=== PATIENT | male | born 1970 | race Caucasian/White ===

== ENCOUNTER 2018-04-12 07:23 | Emergency (ER) | payer MEDICAID, SELFPAY ==
[2018-04-12 07:24] VITALS: BP 134/78; PULSE 71; RESP 16; TEMP 36.4; O2SAT 98; BMI 30.8
--- NOTE | 2018-04-12 07:29 | ED.RN ---
PT DROVE SELF HERE
--- NOTE | 2018-04-12 08:12 | ED.DCSUM_ITS ---
- ER Visit Summary Date of Service: 04/12/18 Chief Complaint: Bleeding hemorrhoid, weakness History of Present Illness: The patient is a 47 M who states he feels weak. Is been feeling this way for 4 days. On Wednesday, he noted that he started having a bleeding hemorrhoid. This made him feel weak. He is concerned for a blood infection. He is seeing Dr. Watson with surgery tomorrow about this hemorrhoid. He has taken nothing for the pain or bleeding. He has not had any fevers. Physical Examination: Vital signs reviewed. HEENT exam unremarkable. Heart is regular rate and rhythm without murmurs. Lungs are clear to auscultation. Abdomen is soft and nontender. Rectal exam reveals a large external hemorrhoid with some oozing of blood. No large amount of bleeding. Extremities reveal no edema. Skin exam normal. Neurologic exam normal. Test Results: CBC and urinalysis negative Emergency Department Course and Treatment: The patient's labs are normal. White blood cell count and hemoglobin normal. Patient will be discharged with Proctofoam. He will follow-up with surgery tomorrow as scheduled Treatment Plan: [] Disposition: Discharge Impression: External bleeding hemorrhoid This note was generated with [employer] dictation software. It may contain incorrect words, spelling, and punctuation that were not noted in review of the chart prior to signing ED Disposition - Plan for ED Patient: Chief Complaint: Other, Pain/Inj
[2018-04-12 08:33] LABS: Absolute Lymphocyte Count 1.56 X10^3/ul (0.83-4.51); Absolute Neutrophil Count 4.6 X10^3/uL (2.0-7.7); Basophil# 0.01 X10^3/uL; Basophil% 0.1 % (0-1); Eosinophil# 0.08 X10^3/uL; Eosinophils% 1.2 % (0-5); Hematocrit 47.2 % (40-54); Hemoglobin 15.8 g/dl (13.0-16.5); Lymphocyte # 1.56 X10^3/ul (4.0); Lymphocyte % 23.1 % (19-41); Mean Corp Hgb Conc 33.5 g/gl (32-36); Mean Corpuscular Hgb 30.3 pg (27.0-32.0); Mean Corpuscular Volume 90.4 fL (80-94); Mean Platelet Vol. 10.5 fl (6.2-12.0); Monocyte# 0.51 X10^3/uL; Monocyte% 7.6 % (0-10); Neutrophil # 4.58 X10^3/uL (2.7-7.7); Neutrophil % 67.9 % (47-70); Platelet Count 164 K/mm3 (150-450); RBC Distribution Width CV 12.8 % (11.6-14.6); RBC Distribution Width SD 42.2 fl (35.1-43.9); Red Blood Count 5.22 M/mm3 (4.6-6.2); White Blood Count 6.8 K/mm3 (4.4-11.0)
[2018-04-12 08:38] LABS: Bacteria 0 SEEN /hpf (None Seen); Mucous, Urine 0 SEEN /hpf (<or=2+); Red Blood Cells-Urine 0 SEEN /hpf (0-5); White Blood Cells 0 SEEN /hpf (0-5)
[2018-04-12 08:39] LABS: POSITIVE COUNT NO; POSITIVE DIFFERENTIAL NO; POSITIVE MORPHOLOGY NO
[2018-04-12 08:39] LABS: Color, Urine Yellow (Yellow); Glucose, Dipstick Normal (Normal); Ketone-Dipstick Negative (Negative); Leukocyte Esterase-Dipstick Negative /ul (Negative); Nitrite-Dipstick Negative (Negative); Occult Blood-Urine Negative /ul (Negative); Protein-Dipstick 15 mg/dl (Negative); Urine Bilirubin Dipstick Negative (Negative); Urine Clarity Sl. Cloudy (Clear); Urine Urobilinogen 1 mg/dl (Normal)
[2018-04-12 08:52] LABS: Squamous Epithelial Cells - UA 0-5 SEEN /hpf (0-5)
--- NOTE | 2018-04-12 09:00 | ED.DEP ---
ED Disposition - Plan for ED Patient: Disposition: Home or Assisted Living Chief Complaint: Other, Pain/Inj Diagnosis: Bleeding external hemorrhoids
--- NOTE | 2018-04-12 09:06 | ED.DEP ---
ED Disposition - Plan for ED Patient: Disposition: Home or Assisted Living Chief Complaint: Other, Pain/Inj Diagnosis: Bleeding external hemorrhoids Instructions: ED Hemorrhoids Prescriptions: Hydrocortisone/Pramoxine [Proctofoam-Hc Foam] 10 gm RC BID #1 foam Referrals: Davi Regalado MD [Primary Care Provider] -
[2018-04-12 09:32] VITALS: PULSE 70; RESP 16; O2SAT 99
== END 2018-04-12 09:32 | disposition home or self-care (01) ==
PROVIDERS: Emergency Provider Emergency Medicine; Family Provider Family Medicine; PCP Family Medicine
DX: K64.4 Residual hemorrhoidal skin tags (principal); Z79.899 Other long term (current) drug therapy
CPT/HCPCS: 81001; 85025; 99282

== ENCOUNTER 2018-04-14 09:40 | Day surgery (SDC) | payer MEDICAID, SELFPAY ==
[2018-04-14] VITALS (7 sets, daily range): BP systolic 124–139; BP diastolic 68–88; PULSE 62–87; RESP 16–18; TEMP 36.5–36.8; O2SAT 95–100; BMI 31.6
--- NOTE | 2018-04-14 08:10 | HEM_PTH ---
PATIENT: MARGARITA MARSHALL LOC: [facility] [place] U#:[id number] AGE/SX: 47/M ROOM: RE04/14/[address]: Dr. Julianne Watson MD : [id number] BED: DIS: 04/14/2018 SPEC #: [id number] RECD: 04/15/18 09:09 STATUS: JODY ABILIO #: [id number] STEPHANIE: 04/14/18 08:[address]: Julianne Watson DEPT: SURGICAL PATHOLOGY RECD BY: Trip Munroe ENTERED: 04/15/18 11:12 SP TYPE: HEMORRHOID OTHR DR: Dr. Davi Regalado MD Tissues: HEMORRHOIDS Procedures: Surgery Specimen Level III HEADER OPERATION: Hemorrhoidectomy PRE-OP DIAGNOSIS: Large prolapsed thrombosed hemorrhoidal tissue TISSUE SUBMITTED: Hemorrhoid tissue MICROSCOPIC DIAGNOSIS Hemorrhoid, hemorrhoidectomy: Submucosal vascular ectasia and thrombosis consistent with hemorrhoid. Mucosal ulceration and associated acute and chronic inflammation with associated reactive epithelial changes. AM:jocelyn 04/18/18 MICROSCOPIC DESCRIPTION Slides are reviewed. GROSS DESCRIPTION Received in fixative is one container labeled with the patient's name and designated hemorrhoid tissue. The specimen consists of pink soft tissue measuring 0.7 x 0.8 x 0.5 cm. The specimen is bisected and submitted entirely in one cassette. / KORTNEY:jocelyn 04/15/18 TC:2 CPT: 48358
[2018-04-14] MEDS: Fleet Enema 1 ML RECTAL (10:20)
[2018-04-14] MEDS: Dibucaine 30 GM Tube 1 APPLIC (11:49)
[2018-04-14] MEDS: Bupiv/Epi 0.5% Mpf 30 ML Vial (13:01)
[2018-04-14] MEDS: HYDROcodone Bitartrate/Apap 5/325 Tablet PO (14:37)
--- NOTE | 2018-04-14 14:50 | PCM.DC.GS ---
Discharge Diet: No Restrictions - drink plenty of fluids avoid caffeinated products - they tend to cause dehydration Discharge Activity: Return to Normal Activity, May not drive while taking narcotic pain medications. Additional Dressing/Incision Instructions:: There is a padding in your rectum, it can fall out, it provides postoperative pain medications to the area and helps stop bleeding. You will have bleeding at the site, this is normal, avoid straining with bowel movements Allergies/Adverse Reactions: Allergies No Known Allergies Allergy (Verified 04/14/18 10:06) Medications to take at Discharge Divalproex Sodium [Depakote] 500 mg PO DAILY 09/22/13 Hydrocodone Bitart/Apap 5-325 [[place] 5MG-325MG] 1 tab PO Q6H PRN PRN 5 Days #20 tab 04/14/18 The following prescriptions were given: Hydrocodone Bitart/Apap 5-325 [[place] 5MG-325MG] 1 tab PO Q6H PRN PRN 5 Days #20 tab PRN Reason: Pain Primary Care Physician: Davi Regalado MD [Primary Care Provider] - Test Results: Test results from this visit will be discussed in further detail at your follow-up appointment, if applicable. Please Follow Up With: Julianne Watson MD - call When: to be seen next week, thank you
--- NOTE | 2018-04-14 14:53 | DCINST_ITS ---
Discharge Diet: No Restrictions - drink plenty of fluids avoid caffeinated products - they tend to cause dehydration Discharge Activity: Return to Normal Activity, May not drive while taking narcotic pain medications. Additional Dressing/Incision Instructions:: There is a padding in your rectum, it can fall out, it provides postoperative pain medications to the area and helps stop bleeding. You will have bleeding at the site, this is normal, avoid straining with bowel movements Allergies/Adverse Reactions: Allergies No Known Allergies Allergy (Verified 04/14/18 10:06) Medications to take at Discharge Divalproex Sodium [Depakote] 500 mg PO DAILY 09/22/13 Hydrocodone Bitart/Apap 5-325 [[place] 5MG-325MG] 1 tab PO Q6H PRN PRN 5 Days #20 tab 04/14/18 The following prescriptions were given: Hydrocodone Bitart/Apap 5-325 [[place] 5MG-325MG] 1 tab PO Q6H PRN PRN 5 Days #20 tab PRN Reason: Pain Primary Care Physician: Davi Regalado MD [Primary Care Provider] - Test Results: Test results from this visit will be discussed in further detail at your follow- up appointment, if applicable. Please Follow Up With: Julianne Watson MD - call When: to be seen next week, thank you
--- NOTE | 2018-04-14 14:53 | PCM.IMDPSTOP ---
Immediate Post-Op Note Date of Procedure: 04/14/18 Primary Surgeon/Physician: Julianne Watson director financial systems: NOT,DEFINED Pre-Operative Diagnosis: prolapsed thrombosed hemorrhoidal tissue Post-Operative Diagnosis: same Surgery/Procedure Performed:: hemorrhoidectomy Description of Surgical Findings:: left lateral bundle prolapsed thrombosed hemorrhoidal tissue Estimated Blood Loss: < 5 ml Specimen's removed: hemorrhoidal tissue Type of Anesthesia:: General ASA Class: ASA2 Mod Systematic Disease - Admit VTE Documentation VTE Present on Admission: Yes VTE Mechan Device Prophylaxis: SCD's
--- NOTE | 2018-04-16 12:31 | PCM.OPRPT ---
Report of Operation Date of Procedure: 04/14/18 Pre-Operative Diagnosis: prolapsed thrombosed hemorrhoidal tissue- left lateral aspect Post-Operative Diagnosis: same Surgery/Procedure Performed:: hemorrhoidectomy and drainage of thrombosed hemorrhoidal tissue Description of Surgical Findings:: left lateral bundle prolapsed thrombosed hemorrhoidal tissue [employer]mw sales consultant: NOT,DEFINED Type of Anesthesia:: General Anesthesiologist: Herb Maxwell Specimen's removed: hemorrhoidal tissue Estimated Blood Loss (mL): < 5 ml Fluids Replaced: see anesthesia note Description of Procedure: After informed consent was obtained, patient was brought to the Operating Room. Appropriate time out protocol was followed. Patient was then placed under anesthesia. He was placed in the modified lithotomy position. The anal canal and perineum was then prepped with a betadyne surgical preparation and appropriate surgical drapes were placed. The patient had large prolapsed hemorrhoidal tissue of the left lateral aspect with thrombosis in the hemorrhoidal tissue. The hemorrhoidal tissues and surrounding tissues were infiltrated with local anesthetic. Using a 15 blade scalpel, an incision was made radially at the center portion of this hemorrhoidal bundle. There was a large amount of thrombosed clot which was removed. The hemorrhoidal tissue within the bundle was then sharply excised with Metzenbaum scissors. A sample was forwarded to pathology for analysis. After removal of the hemorrhoidal tissue and of the majority of the clot within this hemorrhoidal tissue, the hemorrhoidal tissue was able to be reduced back into the anal canal. The incisional edges were re-approximated with 3-0 chromic suture in an interrupted simple fashion. Hemostasis was achieved by electrocautery. Thrombin gelfoam with dubicaine ointment was then rolled together and placed in the anal canal. The patient tolerated procedure well and was brought to the Recovery Room in stable condition. - Complications none noted - Admit VTE Documentation VTE Present on Admission: Yes VTE Mechan Device Prophylaxis: SCD's
== END 2018-04-14 16:01 | disposition home or self-care (01) ==
LOC: SDC 09:42 → AC 09:43
PROVIDERS: Family Provider Family Medicine; PCP Family Medicine; Visit Provider Surgery
PROC: (CPT 46083; principal; 2018-04-14 07:55)
DX: K64.3 Fourth degree hemorrhoids (principal); F41.9 Anxiety disorder, unspecified; F32.9 Major depressive disorder, single episode, unspecified; F17.200 Nicotine dependence, unspecified, uncomplicated; Z79.899 Other long term (current) drug therapy
CPT/HCPCS: 46083; 46320; 88304; J7120; J2405

== ENCOUNTER → 2018-05-06 08:39 | Outpatient (CLI) | payer MEDICAID, SELFPAY | PROVIDERS: Family Provider Family Medicine; PCP Family Medicine; Visit Provider Specialist | DX: M19.012 Primary osteoarthritis, left shoulder (principal) | CPT/HCPCS: 20610; 77002; Q9967; J0702 ==

== ENCOUNTER 2019-11-07 08:20 | Emergency (ER) | payer SELFPAY ==
[2019-11-07 08:28] VITALS: BP 137/67; PULSE 87; RESP 16; TEMP 37.2; O2SAT 97; BMI 32.1
--- NOTE | 2019-11-07 09:14 | EKG12_ITS ---
Test Reason : LOWER EXTREMITY Blood Pressure : / mmHG Vent. Rate : 085 BPM Atrial Rate : 085 BPM P-R Int : 154 ms QRS Dur : 104 ms QT Int : 380 ms P-R-T Axes : 059 -16 019 degrees QTc Int : 452 ms Normal sinus rhythm Normal ECG Confirmed by GABBY WATERS ([id number]), book editor ELIESER JEROME ([id number]) on 11/08/2019 3:02:39 PM Referred By: KORTNEY/LILIANE Confirmed By:GABBY WATERS
--- NOTE | 2019-11-07 09:15 | CT_ITS ---
STUDY: CT ABDOMEN AND PELVIS WITHOUT CONTRAST REASON FOR EXAM: Male, 48 years old. Mid abdomen pain, fever, 4 days post knee surgery. Prior bilateral inguinal hernia repair RADIATION DOSAGE (If Supplied By Facility): CTDIvol = ( 16.62 ) mGy, DLP = ( 976.00 ) mGycm CLINICAL HISTORY: 48 years Male, Mid abdomen pain, fever, 4 days post knee surgery. Prior bilateral inguinal hernia repair COMPARISON: None TECHNIQUE: A CT scan of the abdomen and pelvis was performed without IV contrast contrast administration. Oral contrast administered. Coronal and sagittal reconstruction images were reviewed. This exam was performed according to our departmental dose-optimization program, which includes automated exposure control, adjustment of the mA and/or kV according to patient size and/or use of iterative reconstruction technique. FINDINGS: The lung bases and the base of the heart are normal. The liver is normal.The spleen is normal.The adrenal glands are normal.The head, body, and tail of the pancreas are normal. The right and left kidneys were examined and appear to be normal. Both ureters appear to be normal, and no obstructive uropathy is identified. The abdominal aortal is normal along its course and distribution. No paraortic lymphadenopathy is seen. No abdominal masses or lesions are seen. The CT scan of the pelvis was then reviewed. The common iliac vessels, external iliac vessels, and common femoral vessels are normal along their course and distribution No pelvis masses or lesions are seen. The appendix is not seen No pericecal inflammatory reaction is seen. Some surgical clips are noted in the right groin from previous hernia surgery. Bone scanning windows of the lumbar spine and pelvis were reviewed in the coronal and sagittal planes and appear to be normal. CT/Abdomen/Pelvis without Cont IMPRESSION: Normal unenhanced CT scan of the abdomen and pelvis. Electronically Signed: Marino Jimenez, at 11:02 EST Tel , Service support ,
--- NOTE | 2019-11-07 09:17 | ED.VIS.GEN ---
History of Present Illness Chief Complaint: Lower Extremity Injury Informant: Patient Onset: Days Narrative: Patient presents complaining of fever and abdominal pain that began Wednesday. Indicates he has no past history Indicates on Wednesday he was seen and treated at a [facility] outpatient sports medicine facility and had right knee ACL or PCL type surgical repair, he recalls having abdominal pain and vomiting and fever immediately postop, he continued to have symptoms over the weekend, he saw his [facility] sports medicine physicians yesterday for follow-up he reported all the above to him was provided with no specific instructions. He indicates that today the abdominal pain the fever and the vomiting persisted and came in for evaluation. Indicates having pain to the lower abdomen, he has had temperatures to 104, he reports slight constipation but otherwise normal bowel habits no blood normal urinary output, indicates his physicians told him yesterday that his knee procedure was unremarkable no complications no signs of infection and the did not believe that the knee surgery was contributing to his fever Past Medical History - Allergies and Home Meds Allergies/Adverse Reactions: Allergies No Known Allergies Allergy (Verified 11/07/19 08:21) Primary Care Physician: Davi Regalado MD [Primary Care Provider] - Past Medical History: - Smoking Status: Current some day smoker - Family History Paternal Family History: Reports: Heart Disease Maternal Family History: Reports: Cancer Review of Systems ROS: - As above General: Reports: Fever. Denies: Chills, Sweats Eyes: Denies: Visual changes - bilaterally, Diplopia ENT: Denies: Rhinorrhea, Sore throat Cardiovascular: Denies: Chest pain, Palpitations Respiratory: Denies: Dyspnea, Cough, Dyspnea on exertion Gastrointestinal: Reports: Abdominal pain, Vomiting. Denies: Nausea, Diarrhea, Melena, Hematochezia Genitourinary: Denies: Dysuria, Hematuria, Frequency Musculoskeletal: Denies: Back pain, Extremity Pain Skin: Denies: Rash, Wounds Neurological: Denies: Headache, Weakness, Numbness Physical Exam Vital Signs/Narrative: Vital Signs Temp Pulse Resp BP Pulse Ox 11/07/19 08:28 99.0 F 87 16 137/67 H 97 General: Well nourished, Well developed, No Acute Distress Head: Normocephalic, Atraumatic Eyes: Perrl, EOMI ENT: Moist mucous membranes, No rhinorrhea Neck: Supple, Nontender Cardiovascular: Regular rate, Regular rhythm, No murmurs Respiratory: No distress, CTA bilaterally, Chest nontender Abdomen: Soft, Nontender, Nondistended, Normal bowel sounds, - - He has mild tenderness to the lower abdominal area suprapubic region primarily no rebound or guarding Back: Nontender, Normal Inspection Extremities: Nontender, No edema, - - Right knee was in an extensive knee immobilizer type device that was broken down as was the dressing the incisions are intact there is some vague diffuse discomfort but appears generally normal healing no obvious signs of infection or drainage from the incisions distal leg exam is unremarkable Skin: Normal color, No rash Neurological: Alert, Oriented x3, Cranial nerves II-XII grossly intact, Normal Strength, Normal Sensation Psychological: Normal affect, Normal Mood Diagnostic/Tx/Re-eval - Medical Decision Making The patient's history is rather complicated. He indicates when he has no past history, he had this procedure at some type of a sports medicine facility for [facility] somewhere he believes in [facility], indicates he did not have the symptoms preop, indicates the symptoms began immediately postop and they persisted, he was seen by his orthopedic physicians yesterday and told that the fever was not related to his knee surgery, exactly why he is having abdominal pain and vomiting remains unclear 9 ED evaluation screening labs fluids pain management CT Patient screening labs are generally unremarkable the sed rate is about 41, see all those reports, abdominal CT shows nothing acute as is chest x-ray and UA on reevaluation he is resting company the bed his vital signs are unremarkable, on presentation he did have a temperature of 99, sisters in the room with him now, we did discussed differential and inpatient versus outpatient management he is feeling better he does not wish to be admitted he understands at the exact etiology of all the above remains unclear there is no definitive proof or evidence that his postoperative knee has any type of complication causing the vomiting abdominal discomfort and or the fever, and he just saw his orthopedic surgeons yesterday when he was having the same symptoms, and they did not believe it was related to his post operative procedure, and that he needs close outpatient follow-up he will follow-up with his outpatient providers in the [facility] primary care area and also with the [facility] physicians who performed his right knee surgery and return for change in symptoms Final impression fever, abdominal pain resolved, vomiting resolved, status post right knee surgery ED Disposition - Plan for ED Patient: Diagnosis: Fever vomiting abdominal pain Instructions: FEBRILE ILLNESS, Uncertain Cause (Adult), ABDOMINAL PAIN, Unkown Cause, (Male) Referrals: Davi Regalado MD [Primary Care Provider] - Additional Instructions: Follow-up with your primary care providers and/or surgeons for your symptoms return for change in symptoms
[2019-11-07] MEDS: 0.9% Normal Saline 1,000 ML 1000 ML IV (09:30)
[2019-11-07 09:55] VITALS: BP 128/67; PULSE 88; RESP 14; O2SAT 96
[2019-11-07 10:11] LABS: Erythrocyte Sedimentation Rate 41 mm/hr (0-15)
[2019-11-07 10:14] LABS: ALB/GLOB Ratio 0.8 RATIO (0.9-2.4); AST(SGOT) 25 U/L (15-37); Alanine Aminotransfer ALT/SGPT 40 U/L (16-61); Albumin, Serum 3.4 g/dL (3.2-5.0); Alkaline Phosphatase 65 U/L (45-117); Anion Gap 9 (5-15); BUN 28 mg/dL (7-18); BUN/Creat Ratio 21.5 RATIO (10-20); Calcium,Total 8.8 mg/dL (8.5-10.1); Chloride 103 mmol/L (98-107); EST Glomerular Filtration Rate 63 mL/min (>60); Est Glom Filt Rate - Afr Amer 76 mL/min (>60); Estimated Creatinine Clearance 81.67 ml/min; Globulin 4.1 g/dL (2.2-4.2); Glucose 106 mg/dL (74-106); Lipase 67 U/L (73-393); Potassium 4.1 mmol/L (3.5-5.1); Protein, Total 7.5 g/dL (6.4-8.2); Sodium Level 134 mmol/L (136-145)
--- NOTE | 2019-11-07 10:14 | RAD_ITS ---
EXAM DESCRIPTION: PORTABLE AP CHEST CLINICAL HISTORY: 48 years Male, FEVER, NAUSEA, VOMITING S/P KNEE SURGERY 4 DAYS AGO FEVER, NAUSEA, VOMITING S/P KNEE SURGERY 4 DAYS AGO COMPARISON: Previous chest obtained on 09/22/2013 FINDINGS: The thorax is intact. The heart and mediastinum appear to be within normal limits. The lungs appear to be well areated without evidence of pneumonic consolidation or pleural effusion. RAD/Chest 1 View (Portable) IMPRESSION: Normal portable chest. Electronically Signed: Marino Jimenez, at 10:49 EST Tel , Service support ,
[2019-11-07 10:15] LABS: Absolute Lymphocyte Count 0.56 X10^3/uL (0.83-4.51); Basophil# 0.01 X10^3/uL; Basophil% 0.2 % (0-1); Hematocrit 41.8 % (40-54); Hemoglobin 14.3 g/dL (13.0-16.5); Lymphocyte # 0.56 X10^3/ul (4.0); Lymphocyte % 8.9 % (19-41); Mean Corp Hgb Conc 34.2 g/dL (32-36); Mean Corpuscular Hgb 29.2 pg (27.0-32.0); Mean Corpuscular Volume 85.5 fL (80-94); Mean Platelet Vol. 10.4 fl (6.2-12.0); Monocyte# 0.69 X10^3/uL; Monocyte% 10.9 % (0-10); NRBC Flagged by Analyzer 0 % (0-5); Neutrophil # 5.03 X10^3/uL (2.7-7.7); Neutrophil % 79.5 % (47-70); POSITIVE DIFFERENTIAL YES; Platelet Count 172 K/mm3 (150-450); RBC Distribution Width SD 37.5 fl (35.1-43.9); Red Blood Count 4.89 M/mm3 (4.6-6.2); White Blood Count 6.3 K/mm3 (4.4-11.0)
--- NOTE | 2019-11-07 10:19 | RAD_ITS ---
STUDY: X-RAY - RIGHT KNEE REASON FOR EXAM: Male, 48 years old. FEVER S/P SURGERY 4 DAYS AGO CLINICAL HISTORY: 48 years Male, FEVER S/P SURGERY 4 DAYS AGO COMPARISON: None FINDINGS: [Studies of the right knee shows no evidence of fracture, dislocation, or bony destruction. There appear to be some orthopedic clips in place along the medial femoral condyle and medial tibial plateau from a tibial collateral ligament repair. The right knee is maintaining good position and alignment.] RAD/Knee 1 or 2 Views IMPRESSION: Status post right knee surgery. The right knee is maintained in good position and alignment. Electronically Signed: Marino Jimenez, at 10:51 EST Tel , Service support ,
[2019-11-07 10:23] LABS: Differential Indicated SCAN CRITERIA MET
[2019-11-07 12:01] LABS: Bacteria 0 SEEN /hpf (None Seen); Mucous, Urine 0 SEEN /hpf (<or=2+); Red Blood Cells-Urine 0 SEEN /hpf (0-5); Squamous Epithelial Cells - UA 0 SEEN /hpf (0-5)
[2019-11-07 12:03] LABS: Color, Urine Yellow (Yellow); Glucose, Dipstick Normal (Normal); Ketone-Dipstick 15 mg/dl (Negative); Leukocyte Esterase-Dipstick Negative /ul (Negative); Nitrite-Dipstick Negative (Negative); Occult Blood-Urine Negative /ul (Negative); Protein-Dipstick Negative (Negative); Urine Bilirubin Dipstick Negative (Negative); Urine Clarity Clear (Clear); Urine Urobilinogen Normal (Normal); Urine pH 6.5 (5.0 - 8.0)
[2019-11-07] MEDS: 0.9% Normal Saline 1,000 ML 999 ML IV (12:10)
[2019-11-07 12:13] VITALS: BP 127/88; PULSE 86
[2019-11-07 12:14] LABS: White Blood Cells 0-5 SEEN /hpf (0-5)
[2019-11-07 14:59] VITALS: BP 116/72; PULSE 74; RESP 16; O2SAT 98
== END 2019-11-07 15:06 | disposition home or self-care (01) ==
PROVIDERS: Emergency Provider Emergency Medicine; PCP Family Medicine
DX: R10.30 Lower abdominal pain, unspecified (principal); R50.9 Fever, unspecified; R11.10 Vomiting, unspecified; Z98.890 Other specified postprocedural states; F17.200 Nicotine dependence, unspecified, uncomplicated
CPT/HCPCS: 71045; 73560; 74176; 80053; 81001; 83690; 84484; 85025; 86140; 87086; 93005; 96360; 96361; 99284; J7030; A4216; J2405

== ENCOUNTER → 2020-07-01 | Outpatient (CLI) | payer MEDICAID, SELFPAY ==
--- NOTE | 2020-07-01 09:10 | RAD_ITS ---
PROCEDURE: Fluoroscopic guided left shoulder Injection DATE: 07/01/2020. INDICATION: Male, 49 years old. Chronic shoulder pain. PHYSICIAN: Migue Cook M.D. MEDICATIONS: 5 mg of BETAMETHASONE and 4 cc of 1% LIDOCAINE. 2% Lidocaine administered subcutaneously for local anesthesia. ACCESS SITE: Left shoulder. NEEDLE: 22-gauge spinal needle. FLUOROSCOPY TIME (if supplied): (0:43) minutes/seconds FINDINGS: The risks, benefits, and alternatives to the procedure were explained to the patient. The specific risks of bleeding, infection, and neurovascular injury were detailed and accepted. Witnessed informed consent was obtained. A 22-gauge spinal needle was positioned under radiograph fluoroscopic localization. Approximately 2 cc of ISOVUE-300 instilled for localization purposes. Medication was then injected. The patient tolerated the procedure well without any immediate complications. . RAD/Inj/Asp Marv Jt Should/Hip/Knee IMPRESSION: 1. Successful fluoroscopic guided left shoulder injection. Electronically Signed: Migeu Cook, at 11:20 EDT , Service support ,
== END | disposition home or self-care (01) ==
LOC: RAD 09:06
PROVIDERS: PCP Family Medicine; Referring Provider Specialist; Visit Provider Specialist
DX: M19.012 Primary osteoarthritis, left shoulder (principal)
CPT/HCPCS: 20610; 77002; Q9967; J0702